=== PATIENT | male | born 1930 | race Caucasian/White ===

== ENCOUNTER → 2016-06-10 | Outpatient (CLI) | payer MEDICARE, BC, OTHER ==
--- NOTE | 2016-06-10 08:55 | CT ---
EXAMINATION TYPE: CT brain wo/w con DATE OF EXAM: 06/10/2016 8:40 AM COMPARISON: 10/16/2015 HISTORY: Weakness CT DLP: 1953.7 mGycm, Automated exposure control for dose reduction was used. CONTRAST: Patient injected with 100 mL of Omnipaque 300. CT of the brain is performed utilizing 3 mm thick sections through the posterior fossa and 3 mm thick sections through the remaining calvarium. Study is performed within 24 hours of arrival to the hospital. No abnormal hyperdensity is present to suggest an acute intracranial hemorrhage. No mass lesion is evident. No acute infarcts are evident. Ventricles and sulci are slightly prominent for the patient age. There is prominence of the extra-ax ial spaces. Mass effect on the adjacent brain is not identified. However, this appears to be an inter camilo change from 10/16/2015. No temporal horn dilatation is evident. Paranasal sinuses and mastoid air cells within the [id number] are clear. IMPRESSIONS: 1. Age-related atrophy. 2. Some prominence of the extra-axial spaces could indicate subdural hygromas or less likely, chronic subdural hematomas.
== END | disposition home or self-care (01) ==
LOC: RADCTMAIN 07:15
PROVIDERS: ATTEND Family Medicine
DX: G31.1 Senile degeneration of brain, not elsewhere classified (principal); R93.0 Abnormal findings on diagnostic imaging of skull and head, not elsewhere classified
CPT/HCPCS: 70470; Q9967

== ENCOUNTER 2016-06-12 07:03 | Observation (INO) | payer MEDICARE, BC, OTHER ==
--- NOTE | 2016-06-12 08:36 | ED ---
Altered Mental Status HPI - General Chief Complaint: Altered Mental Status Stated Complaint: sick Time Seen by Provider: 06/12/16 08:00 Source: EMS, RN notes reviewed Mode of arrival: EMS Limitations: altered mental status - History of Present Illness Initial Comments: 86-year-old male present emergency department via EMS from [facility] on take usp. Patient sent in for altered mental status. There is no information given by patient as he is altered and nonverbal at this time. Patient has had a recent TIA and was at [facility]. Patient has not had a fever. Information is limited at this time. - Related Data Home Medications Medication Instructions Recorded Confirmed Acetaminophen Tab [Tylenol Tab] 650 mg PO Q6H PRN 10/16/15 06/12/16 Calcium Carbonate/Vitamin D3 1 tab PO DAILY 10/16/15 06/12/16 [Calcium 600 + Vit D 400 Tablet] Cyanocobalamin [Vitamin B-12] 500 mcg PO DAILY 10/16/15 06/12/16 Famotidine [Pepcid] 20 mg PO HS 10/16/15 06/12/16 Fluticasone Nasal [place] [Flonase 1 spray EA NOSTRIL BID 10/16/15 06/12/16 Nasal [place]] Furosemide [Lasix] 40 mg PO MOWEFR 10/16/15 06/12/16 Glimepiride [Amaryl] 1 mg PO [id number]-[id number] 10/16/15 06/12/16 Inzo 1 applic TOPICAL BID PRN 10/16/15 06/12/16 Melatonin 6 mg PO HS 10/16/15 06/12/16 Metoprolol Tartrate [Lopressor] 12.5 mg PO BID 10/16/15 06/12/16 Triamcinolone 0.1% Cream [Kenalog] 1 applicatio TOPICAL BID 10/16/15 06/12/16 Aspirin 325 mg PO DAILY 06/12/16 06/12/16 Buprenorphine [Butrans 10 MCG/HOUR] 1 patch TRANSDERM TU 06/12/16 06/12/16 Furosemide [Lasix] 20 mg PO SUTUTHSA 06/12/16 06/12/16 Mylanta Susp 30 ml PO Q4H PRN 06/12/16 06/12/16 Potassium Chloride [Klor-Con 20] 20 meq PO DAILY 06/12/16 06/12/16 diphenhydrAMINE [Benadryl] 50 mg PO ONCE 06/12/16 06/12/16 metFORMIN HCL [Glucophage] 500 mg PO TID 06/12/16 06/12/16 predniSONE 50 mg PO ONCE 06/12/16 06/12/16 Previous Rx's Medication Instructions Recorded Gabapentin [Neurontin] 400 mg PO TID #90 cap 10/16/15 Allergies Allergy/AdvReac Type Severity Reaction Status Date / Time iodine Allergy Unknown Verified 06/12/16 07:57 Review of Systems ROS Statement: Those systems with pertinent positive or pertinent negative responses have been documented in the HPI. ROS Other: All systems not noted in ROS Statement are negative. Past Medical History Past Medical History: CVA/TIA, Diabetes Mellitus History of Any Multi-Drug Resistant Organisms: Unobtainable Past Surgical History: Unable to Obtain Additional Past Surgical History / Comment(s): pt does not know his history Past Psychological History: No Psychological Hx Reported, Unable to Obtain Smoking Status: Never smoker Past Alcohol Use History: None Reported Past Drug Use History: None Reported General Exam Limitations: altered mental status General appearance: in no apparent distress Head exam: Present: atraumatic, normocephalic, normal inspection Eye exam: Present: normal appearance, PERRL, EOMI. Absent: scleral icterus, conjunctival injection, periorbital swelling ENT exam: Present: normal exam, normal oropharynx, mucous membranes moist, TM's normal bilaterally Neck exam: Present: normal inspection. Absent: tenderness, meningismus, lymphadenopathy Respiratory exam: Present: normal lung sounds bilaterally. Absent: respiratory distress, wheezes, rales, rhonchi, stridor Cardiovascular Exam: Present: regular rate, normal rhythm, normal heart sounds. Absent: systolic murmur, diastolic murmur, rubs, gallop, clicks GI/Abdominal exam: Present: soft, normal bowel sounds. Absent: distended, tenderness, guarding, rebound, rigid Neurological exam: Present: altered. Absent: alert, oriented X3 Skin exam: Present: warm, dry Course Vital Signs 06/12/16 06/12/16 06/12/16 07:17 07:31 09:46 Temperature 96.7 F L Pulse Rate 83 77 Respiratory 18 18 Rate Blood Pressure 130/59 122/59 O2 Sat by Pulse 100 98 100 Oximetry Medical Decision Making - Lab Data Result diagrams: 06/12/16 08:55 06/12/16 08:55 Lab Results 06/12/16 06/12/16 06/12/16 Range/Units 08:45 08:55 08:55 WBC 7.7 (3.8-10.6) k/uL RBC 4.54 (4.30-5.90) m/uL Hgb 14.5 (13.0-17.5) gm/dL Hct 44.5 (39.0-53.0) % MCV 97.9 (80.0-100.0) fL MCH 32.0 (25.0-35.0) pg MCHC 32.6 (31.0-37.0) g/dL RDW 14.9 (11.5-15.5) % Plt Count 158 (150-450) k/uL Neutrophils % 74 % Lymphocytes % 17 % Monocytes % 7 % Eosinophils % 1 % Basophils % 0 % Neutrophils # 5.7 (1.3-7.7) k/uL Lymphocytes # 1.3 (1.0-4.8) k/uL Monocytes # 0.5 (0-1.0) k/uL Eosinophils # 0.1 (0-0.7) k/uL Basophils # 0.0 (0-0.2) k/uL PT 10.9 (9.0-12.0) sec INR 1.1 (<1.1) APTT 24.3 (22.0-30.0) sec Sodium (137-145) mmol/L Potassium (3.5-5.1) mmol/L Chloride (98-107) mmol/L Carbon Dioxide (22-30) mmol/L Anion Gap mmol/L BUN (9-20) mg/dL Creatinine (0.66-1.25) mg/dL Est GFR (MDRD) Af Amer (>60 ml/min/1.73 sqM) Est GFR (MDRD) Non-Af (>60 ml/min/1.73 sqM) Glucose (74-99) mg/dL POC Glucose (mg/dL) (75-99) mg/dL POC Glu Subsystems Engineer ID Calcium (8.4-10.2) mg/dL Magnesium (1.6-2.3) mg/dL Total Bilirubin (0.2-1.3) mg/dL AST (17-59) U/L ALT (21-72) U/L Alkaline Phosphatase (38-126) U/L Ammonia (<30) umol/L Total Creatine Kinase (55-170) U/L CK-MB (CK-2) (0.0-2.4) ng/mL CK-MB (CK-2) Rel Index Troponin I (0.000-0.034) ng/mL Total Protein (6.3-8.2) g/dL Albumin (3.5-5.0) g/dL Urine Color Yellow Urine Appearance Cloudy (Clear) Urine pH 5.5 (5.0-8.0) Ur Specific Homer 1.013 (1.001-1.035) Urine Protein Negative (Negative) Urine Glucose (UA) Negative (Negative) Urine Ketones Negative (Negative) Urine Blood Negative (Negative) Urine Nitrate Negative (Negative) Urine Bilirubin Negative (Negative) Urine Urobilinogen <2.0 (<2.0) mg/dL Ur Leukocyte Esterase Small H (Negative) Urine WBC 13 H (0-5) /hpf Ur Squamous Epith Cells <1 (0-4) /hpf Hyaline Casts 1 (0-2) /lpf Urine Mucus Rare H (None) /hpf 06/12/16 06/12/16 06/12/16 Range/Units 08:55 08:55 08:55 WBC (3.8-10.6) k/uL RBC (4.30-5.90) m/uL Hgb (13.0-17.5) gm/dL Hct (39.0-53.0) % MCV (80.0-100.0) fL MCH (25.0-35.0) pg MCHC (31.0-37.0) g/dL RDW (11.5-15.5) % Plt Count (150-450) k/uL Neutrophils % % Lymphocytes % % Monocytes % % Eosinophils % % Basophils % % Neutrophils # (1.3-7.7) k/uL Lymphocytes # (1.0-4.8) k/uL Monocytes # (0-1.0) k/uL Eosinophils # (0-0.7) k/uL Basophils # (0-0.2) k/uL PT (9.0-12.0) sec INR (<1.1) APTT (22.0-30.0) sec Sodium 141 (137-145) mmol/L Potassium 5.1 (3.5-5.1) mmol/L Chloride 100 (98-107) mmol/L Carbon Dioxide 30 (22-30) mmol/L Anion Gap 11 mmol/L BUN 29 H (9-20) mg/dL Creatinine 0.87 (0.66-1.25) mg/dL Est GFR (MDRD) Af Amer >60 (>60 ml/min/1.73 sqM) Est GFR (MDRD) Non-Af >60 (>60 ml/min/1.73 sqM) Glucose 69 L (74-99) mg/dL POC Glucose (mg/dL) (75-99) mg/dL POC Glu Subsystems Engineer ID Calcium 9.5 (8.4-10.2) mg/dL Magnesium 1.9 (1.6-2.3) mg/dL Total Bilirubin 0.9 (0.2-1.3) mg/dL AST 75 H (17-59) U/L ALT 103 H (21-72) U/L Alkaline Phosphatase 136 H (38-126) U/L Ammonia <9 (<30) umol/L Total Creatine Kinase 38 L (55-170) U/L CK-MB (CK-2) 2.2 (0.0-2.4) ng/mL CK-MB (CK-2) Rel Index 5.8 Troponin I <0.012 (0.000-0.034) ng/mL Total Protein 6.5 (6.3-8.2) g/dL Albumin 3.6 (3.5-5.0) g/dL Urine Color Urine Appearance (Clear) Urine pH (5.0-8.0) Ur Specific Homer (1.001-1.035) Urine Protein (Negative) Urine Glucose (UA) (Negative) Urine Ketones (Negative) Urine Blood (Negative) Urine Nitrate (Negative) Urine Bilirubin (Negative) Urine Urobilinogen (<2.0) mg/dL Ur Leukocyte Esterase (Negative) Urine WBC (0-5) /hpf Ur Squamous Epith Cells (0-4) /hpf Hyaline Casts (0-2) /lpf Urine Mucus (None) /hpf 06/12/16 Range/Units 10:51 WBC (3.8-10.6) k/uL RBC (4.30-5.90) m/uL Hgb (13.0-17.5) gm/dL Hct (39.0-53.0) % MCV (80.0-100.0) fL MCH (25.0-35.0) pg MCHC (31.0-37.0) g/dL RDW (11.5-15.5) % Plt Count (150-450) k/uL Neutrophils % % Lymphocytes % % Monocytes % % Eosinophils % % Basophils % % Neutrophils # (1.3-7.7) k/uL Lymphocytes # (1.0-4.8) k/uL Monocytes # (0-1.0) k/uL Eosinophils # (0-0.7) k/uL Basophils # (0-0.2) k/uL PT (9.0-12.0) sec INR (<1.1) APTT (22.0-30.0) sec Sodium (137-145) mmol/L Potassium (3.5-5.1) mmol/L Chloride (98-107) mmol/L Carbon Dioxide (22-30) mmol/L Anion Gap mmol/L BUN (9-20) mg/dL Creatinine (0.66-1.25) mg/dL Est GFR (MDRD) Af Amer (>60 ml/min/1.73 sqM) Est GFR (MDRD) Non-Af (>60 ml/min/1.73 sqM) Glucose (74-99) mg/dL POC Glucose (mg/dL) 92 (75-99) mg/dL POC Glu Subsystems Engineer ID Sujey Vital Calcium (8.4-10.2) mg/dL Magnesium (1.6-2.3) mg/dL Total Bilirubin (0.2-1.3) mg/dL AST (17-59) U/L ALT (21-72) U/L Alkaline Phosphatase (38-126) U/L Ammonia (<30) umol/L Total Creatine Kinase (55-170) U/L CK-MB (CK-2) (0.0-2.4) ng/mL CK-MB (CK-2) Rel Index Troponin I (0.000-0.034) ng/mL Total Protein (6.3-8.2) g/dL Albumin (3.5-5.0) g/dL Urine Color Urine Appearance (Clear) Urine pH (5.0-8.0) Ur Specific [place] (1.001-1.035) Urine Protein (Negative) Urine Glucose (UA) (Negative) Urine Ketones (Negative) Urine Blood (Negative) Urine Nitrate (Negative) Urine Bilirubin (Negative) Urine Urobilinogen (<2.0) mg/dL Ur Leukocyte Esterase (Negative) Urine WBC (0-5) /hpf Ur Squamous Epith Cells (0-4) /hpf Hyaline Casts (0-2) /lpf Urine Mucus (None) /hpf Disposition Clinical Impression: Altered mental status, UTI (urinary tract infection) Disposition: ADMITTED IP TO THIS HOSP
--- NOTE | 2016-06-12 08:45 | CT ---
EXAMINATION TYPE: CT brain wo con DATE OF EXAM: 06/12/2016 8:35 AM COMPARISON: 06/10/2016 HISTORY: lethargic with altered mental changes CT DLP: [address] of the brain was performed. The ventricles, basal cisterns and sulci overlying the cerebral convexities demonstrate mild enlargem ent. There is no evidence for intracranial hemorrhage or sulcal effacement. There is decreased attenuation about the periventricular white matter and deep white matter of both c erebral hemispheres, compatible with chronic small vessel ischemia. Differential diagnosis does inclu de demyelination. No mass effects are seen.No midline shift. Osseous calvarium is intact. If symptoms persist consider MRI. IMPRESSION: 1. Age related atrophic and chronic small vessel ischemic change without acute intracranial process s een at this time.
[2016-06-12 09:05] LABS: Appearance,Urine Cloudy (Clear); Bilirubin,Urine Negative (Negative); Glucose,Urine (UA) Negative (Negative); Ketones,Urine Negative (Negative); Leukocyte Esterase,Urine Small (Negative); Mucus,Urine Rare /hpf; Nitrite,Urine Negative (Negative); PH, Urine 5.5 (5.0-8.0); Particle Count 5880; Protein,Urine Negative (Negative); Specific Gravity,Urine 1.013 (1.001-1.035); Squamous Epithelial Cell,Urine <1 /hpf (0-4); UA Billing (MACRO vs. MICRO) MICRO; Urobilinogen,Urine <2.0 mg/dL (<2.0); WBC,Urine 13 /hpf (0-5)
[2016-06-12 09:11] LABS: Basophils % (A) 0 %; CH 33.1; Eosinophils # (A) 0.1 k/uL (0-0.7); Eosinophils % (A) 1 %; HCT 44.5 % (39.0-53.0); HDW 2.86; HGB 14.5 gm/dL (13.0-17.5); Luc # (Auto) 0.08; Luc % (Auto) 1; Lymphocytes # (A) 1.3 k/uL (1.0-4.8); Lymphocytes % (A) 17 %; MCHC 32.6 g/dL (31.0-37.0); MCV 97.9 fL (80.0-100.0); Mean Platelet Volume 7.4; Monocytes # (A) 0.5 k/uL (0-1.0); Monocytes % (A) 7 %; Neutrophils # (A) 5.7 k/uL (1.3-7.7); Neutrophils % (A) 74 %; RBC 4.54 m/uL (4.30-5.90); RDW 14.9 % (11.5-15.5); WBC 7.7 k/uL (3.8-10.6); WBC (Perox) 8.52
--- NOTE | 2016-06-12 09:15 | XR ---
EXAMINATION TYPE: XR chest 2V DATE OF EXAM: 06/12/2016 8:33 AM COMPARISON: 10/16/2015 HISTORY: Shortness of breath TECHNIQUE: Frontal and lateral views of the chest are obtained. FINDINGS: Scattered senescent parenchymal changes noted. Hyperinflation compatible with COPD. No evidence for infiltrate. No evidence for atelectasis. Heart size is stable. Mediastinal structures are stable and grossly unremarkable. No evidence for hilar prominence. Degenerative changes dorsal spine. IMPRESSION: 1. No evidence for acute pulmonary disease.
[2016-06-12 09:18] LABS: INR 1.1 (<1.1); Partial Thromboplastin Time 24.3 sec (22.0-30.0); Prothrombin Time 10.9 sec (9.0-12.0)
[2016-06-12 09:23] LABS: ALT 103 U/L (21-72); AST 75 U/L (17-59); Alkaline Phosphatase 136 U/L (38-126); Anion Gap 11 mmol/L; Blood Urea Nitrogen 29 mg/dL (9-20); Calcium 9.5 mg/dL (8.4-10.2); Carbon Dioxide 30 mmol/L (22-30); Chloride 100 mmol/L (98-107); Glucose 69 mg/dL (74-99); Magnesium 1.9 mg/dL (1.6-2.3); Non-African American GFR(MDRD) >60 (>60 ml/min/1.73 sqM); Potassium 5.1 mmol/L (3.5-5.1); Sodium 141 mmol/L (137-145); Total Bilirubin 0.9 mg/dL (0.2-1.3); Total Protein 6.5 g/dL (6.3-8.2)
[2016-06-12 09:34] LABS: Creatine Kinase 38 U/L (55-170)
[2016-06-12 09:47] LABS: Creatine Kinase MB 2.2 ng/mL (0.0-2.4); Troponin I <0.012 ng/mL (0.000-0.034)
[2016-06-12] MEDS ORDERED: LEVOFLOXACIN 750MG-D5W PMX 750 MG in DEXTROSE/WATER 1 150ML.BAG IVPB STA (10:36)
[2016-06-12 10:54] LABS: Glucose,Whole Blood 92 mg/dL (75-99)
[2016-06-12] MEDS ORDERED: NALOXONE 0.4 MG/ML 1 ML VIAL IV PRN (11:23)
[2016-06-12] MEDS ORDERED: ACETAMINOPHEN TAB 325 MG TAB PO PRN (11:24)
[2016-06-12] MEDS ORDERED: MORPHINE SULFATE 4 MG/ML SYRINGE IVP STA (12:03)
[2016-06-12] MEDS ORDERED: KETOROLAC 30 MG/ML 1 ML VIAL IVP STA (12:17)
[2016-06-12] MEDS: SODIUM CHLORIDE 0.9% 1,000 ML IV SCH ×2 (12:18→21:42)
[2016-06-12] MEDS ORDERED: FUROSEMIDE 20 MG TAB PO SCH (12:45)
--- NOTE | 2016-06-12 14:45 | HP ---
DATE OF ADMISSION: CHIEF COMPLAINT: Altered mental status. HISTORY OF PRESENT ILLNESS: This is an 86-year-old male with past medical history significant for advanced dementia, presents to the emergency department with worsening mental status. According to the ER record, as there is no other way for information at this point, that the patient was having changing in his mental status at the long term and was brought to the emergency department for further investigation. Blood work was done at the long term and revealed normal liver function status and normal creatinine and electrolyte panel. Here in the emergency, the urine showed possibility for urinary tract infection. Patient was started on Levaquin and admitted. REVIEW OF SYSTEMS: Unable to obtain due to patient's condition. PAST MEDICAL HISTORY: Limited information due to patient's condition include: 1. Hypertension. 2. Dementia. 3. Benign prostatic hypertrophy. PAST SURGICAL HISTORY: Unknown. FAMILY HISTORY: Unknown. HOME MEDICATIONS: Still waiting on the long term to send his home medications. SOCIAL HISTORY: No document history of tobacco, alcohol or drug abuse. IMAGING AND LABS: As mentioned above. UA is positive for urinary tract infection. PHYSICAL EXAMINATION: VITAL SIGNS: Reviewed and stable. GENERAL: In his stated age, in no acute distress. Arousable to voice command. NECK: Supple, no masses or thyromegaly. HEENT: Atraumatic, normocephalic, PERRLA. LUNGS: Clear to auscultation bilaterally. HEART: S1, S2. ABDOMEN: Soft, no tenderness. Bowel sounds positive in all 4 quadrants. LOWER EXTREMITY: No edema. Positive for gauze wrapped on his left lower ankle. I examined that personally and there is no skin break, erythema or swelling noticed on physical examination. No tenderness with range of motion. SKIN: No new rash. PSYCH: Follows simple commands. ASSESSMENT AND PLAN: 1. Acute encephalopathy with history of dementia and current urinary tract infection. I would like to start patient on Levaquin, obtain urine culture. I would like to follow up on his vital signs closely. Avoid nephrotoxic medication and optimize his medical treatment. 2. History of dementia. 3. Debility and weakness. Will have PT, OT evaluate the patient during this hospital stay and prior to discharge. 4. Benign prostatic hypertrophy. Will obtain home medication regimen from the long term and consider discharging patient on appropriate regimen. 5. Hypertension, seems to be under fair control at this point. 6. Deep venous thrombosis prophylaxis. Will provide patient with Lovenox during this hospital stay. 7. Discharge process based on clinical progress.
[2016-06-12 16:13] LABS: Glucose,Whole Blood 84 mg/dL (75-99)
[2016-06-12] MEDS: GABAPENTIN 400 MG CAP PO SCH ×2 (18:25→21:42)
[2016-06-12] MEDS: metFORMIN 500 MG TAB PO SCH ×2 (18:26→21:42)
[2016-06-12 20:11] LABS: Glucose,Whole Blood 79 mg/dL (75-99)
[2016-06-12] MEDS ORDERED: FAMOTIDINE 20 MG TAB PO SCH (21:00)
[2016-06-12] MEDS: METOPROLOL TARTRATE 12.5 MG TAB PO SCH (21:42)
[2016-06-13] MEDS ORDERED: GLIMEPIRIDE 1 MG TAB PO SCH (07:30)
[2016-06-13 08:03] LABS: Glucose,Whole Blood 53 mg/dL (75-99)
[2016-06-13 08:03] LABS: Glucose,Whole Blood 68 mg/dL (75-99)
[2016-06-13 08:14] LABS: Glucose,Whole Blood 72 mg/dL (75-99)
[2016-06-13 08:42] VITALS: BP 129/59; PULSE 83; RESP 17; TEMP 97.4
[2016-06-13] MEDS: SODIUM CHLORIDE 0.9% 1,000 ML IV SCH (08:42)
[2016-06-13] MEDS: METOPROLOL TARTRATE 12.5 MG TAB PO SCH (08:43)
[2016-06-13] MEDS: metFORMIN 500 MG TAB PO SCH (08:43)
[2016-06-13] MEDS: GABAPENTIN 400 MG CAP PO SCH (08:43)
[2016-06-13] MEDS ORDERED: ASPIRIN 325 MG TAB PO SCH (09:00)
[2016-06-13] MEDS ORDERED: FUROSEMIDE 40 MG TAB PO SCH (09:00)
[2016-06-13] MEDS ORDERED: POTASSIUM CHLORIDE ER 20 MEQ TAB.ER PO SCH (09:00)
[2016-06-13 11:59] LABS: Glucose,Whole Blood 91 mg/dL (75-99)
--- NOTE | 2016-06-13 13:35 | DS ---
DATE OF ADMISSION: 06/12/2016 DATE OF DISCHARGE: 06/13/2016 ADMITTING DIAGNOSIS: 1. Altered mental status. 2. Generalized weakness. 3. Genitourinary tract infection. 4. Dementia. DISCHARGE DIAGNOSIS: 1. Altered mental status. 2. Generalized weakness. 3. Genitourinary tract infection. 4. Dementia. HISTORY OF PRESENT ILLNESS: This is an 86 year old male who is a resident of a retirement, who presented to the hospital with altered mental status. The patient had baseline history of dementia, daughter was at the bedside, who reassured me that the patient was at the baseline mental status and is basically room bound with activities with assistance. The patient was alert, awake, and following commands, tolerated his diet. He received Levaquin during the hospital stay. The patient is stable from the medical standpoint, and plan discussed with the daughter at the bedside at length who preferred that the patient go back and get this treatment for urinary tract infection at the retirement as the patient gets very delirious during the hospital stay. The patient was discharged in stable condition.
[2016-06-17] MEDS ORDERED: BUPRENORPHINE TRANSDERM SCH (11:24)
== END 2016-06-13 15:00 ==
LOC: EC 07:03 → 3OBS 11:23 → 5MS5E 12:32
PROVIDERS: ADMIT Internal Medicine; ATTEND Internal Medicine
DX: R41.82 Altered mental status, unspecified (principal); R53.1 Weakness; N39.0 Urinary tract infection, site not specified; F03.90 Unspecified dementia, unspecified severity, without behavioral disturbance, psychotic disturbance, mood disturbance, and anxiety; N40.0 Benign prostatic hyperplasia without lower urinary tract symptoms; E11.9 Type 2 diabetes mellitus without complications; I10 Essential (primary) hypertension; Z86.73 Personal history of transient ischemic attack (TIA), and cerebral infarction without residual deficits; Z79.82 Long term (current) use of aspirin; Z79.84 Long term (current) use of oral hypoglycemic drugs; Z79.899 Other long term (current) drug therapy; Z88.8 Allergy status to other drugs, medicaments and biological substances
CPT/HCPCS: 36415; 97163; 97167; 80053; 82140; 82550; 82553; 83735; 84484; 85025; 85610; 85730; 81001; 87040; 87086; 71020; 70450; 99285; 96365; 96366; 96375; G0378 ×2; J0696; J1885; J1956; 93005; 96361; 96367

== ENCOUNTER 2016-06-20 19:56 | Inpatient (IN) | payer MEDICARE, BC, OTHER ==
[~2016-06-20 19:56] MED LIST: ATROPINE SULFATE 0.1 MG/ML 10ML SYRINGE ONE; EPINEPHrine 10 ML SYRINGE (0.1 MG/ML) ONE
[2016-06-20] MEDS ORDERED: MORPHINE SULFATE 4 MG/ML SYRINGE IV STA (20:21)
[2016-06-20] MEDS ORDERED: SODIUM CHLORIDE 0.9% 1,000 ML IV STA ×2 (20:21)
--- NOTE | 2016-06-20 20:38 | ED ---
General Adult HPI - General Chief complaint: Weakness Stated complaint: dehydration Time Seen by Provider: 06/20/16 20:02 Source: EMS, RN notes reviewed, old records reviewed Mode of arrival: EMS - History of Present Illness Initial comments: This is an 86-year-old male ER for evaluation. Patient's is here today for reevaluation weakness. Patient is unable to give history, patient's poor strain secondary to mental state critical condition. History is obtained from EMS and patient's chart - Related Data Home Medications Medication Instructions Recorded Confirmed Acetaminophen Tab [Tylenol] 650 mg PO Q6H PRN 10/16/15 06/20/16 Calcium Carbonate/Vitamin D3 1 tab PO DAILY 10/16/15 06/20/16 [Calcium 600-Vit D3 400 Tablet] Cyanocobalamin [Vitamin B-12] 500 mcg PO DAILY 10/16/15 06/20/16 Famotidine [Pepcid] 20 mg PO HS 10/16/15 06/20/16 Fluticasone Nasal [place] [Flonase 1 spray EA NOSTRIL BID 10/16/15 06/20/16 Nasal [place]] Glimepiride [Amaryl] 1 mg PO AC-BRKFST 10/16/15 06/20/16 Inzo 1 applic TOPICAL BID PRN 10/16/15 06/20/16 Melatonin 6 mg PO HS 10/16/15 06/20/16 Metoprolol Tartrate [Lopressor] 12.5 mg PO BID 10/16/15 06/20/16 Triamcinolone 0.1% Cream [Kenalog] 1 applicatio TOPICAL BID 10/16/15 06/20/16 Aspirin 325 mg PO DAILY 06/12/16 06/20/16 Mylanta Susp 30 ml PO Q4H PRN 06/12/16 06/20/16 Potassium Chloride [Klor-Con 20] 20 meq PO DAILY 06/12/16 06/20/16 metFORMIN HCL [Glucophage] 500 mg PO TID 06/12/16 06/20/16 Previous Rx's Medication Instructions Recorded Gabapentin [Neurontin] 400 mg PO TID #90 cap 10/16/15 Buprenorphine [Butrans 10 MCG/HOUR] 1 patch TRANSDERM TU #4 patch.tdwk 06/13/16 Furosemide [Lasix] 20 mg PO DAILY #0 06/13/16 Nitrofurantoin Monohyd/M-Cryst 100 mg PO Q12HR #14 cap 06/13/16 [Macrobid] Allergies Allergy/AdvReac Type Severity Reaction Status Date / Time iodine Allergy Unknown Verified 06/20/16 20:10 Review of Systems ROS Statement: Those systems with pertinent positive or pertinent negative responses have been documented in the HPI. ROS Other: All systems not noted in ROS Statement are negative. Past Medical History Past Medical History: CVA/TIA, Dementia, Diabetes Mellitus, GERD/Reflux, Osteoarthritis (OA), Pneumonia, Vascular Disorder Additional Past Medical History / Comment(s): PANCREATITIS, CHRONIC SKIN ULCERS, ESOPHAGITIS, "EITHER SCARLET FEVER OR RHUEMATIC FEVER CHILD", BRAIN ANEURYSM. History of Any Multi-Drug Resistant Organisms: Unobtainable Past Surgical History: Back Surgery Additional Past Surgical History / Comment(s): SEVRAL BACK SX, CATARACTS," HAD SX D/T ABCESS THAT DEVELOPED AFTER HAVING PANCREATITIS" Past Anesthesia/Blood Transfusion Reactions: No Reported Reaction Additional Past Anesthesia/Blood Transfusion Reaction / Comment(s): ALLERGIC TO IV CONTRAST DYE Past Psychological History: No Psychological Hx Reported, Unable to Obtain Smoking Status: Former smoker Past Alcohol Use History: None Reported Past Drug Use History: None Reported - Past Family History Father Additional Family Medical History / Comment(s): FROM BLACK LUNG Mother Family Medical History: CVA/TIA General Exam Limitations: altered mental status General appearance: alert, lethargic, in distress, cachectic Head exam: Present: atraumatic, normocephalic, normal inspection Eye exam: Present: normal appearance, PERRL, EOMI. Absent: scleral icterus, conjunctival injection, periorbital swelling ENT exam: Present: mucous membranes dry Neck exam: Present: normal inspection. Absent: tenderness, meningismus, lymphadenopathy Respiratory exam: Present: normal lung sounds bilaterally. Absent: respiratory distress, wheezes, rales, rhonchi, stridor Cardiovascular Exam: Present: regular rate, normal rhythm, tachycardia, normal heart sounds. Absent: systolic murmur, diastolic murmur, rubs, gallop, clicks GI/Abdominal exam: Present: soft, normal bowel sounds. Absent: distended, tenderness, guarding, rebound, rigid Extremities exam: Present: normal inspection, full ROM, normal capillary refill. Absent: tenderness, pedal edema, joint swelling, calf tenderness Back exam: Present: normal inspection Neurological exam: Present: alert, oriented X3, CN II-XII intact Psychiatric exam: Present: normal affect, normal mood Skin exam: Present: warm, dry, intact, normal color. Absent: rash Course Vital Signs 06/20/16 20:07 Temperature 97.2 F L Pulse Rate 111 H Respiratory 19 Rate Blood Pressure 166/87 O2 Sat by Pulse 94 L Oximetry - Reevaluation(s) Reevaluation #1: 06/20/16 21:31 Patient's without clinical improvement EKG Findings - EKG Comments: EKG Findings:: EKG shows sinus tachycardia rate 113, NC 160, QRS 70, QTC 458 Medical Decision Making - Medical Decision Making 86 male ER for evaluation. Patient we will give history, patient presented here for evaluation of weakness, patient found to be severe be dehydrated and malnourished, will admit for resuscitation, no infection found, patient started on antibiotic prophylaxis secondary to sepsis protocol, patient will be admitted for monitoring of mental status - Lab Data Result diagrams: 06/20/16 20:45 06/20/16 20:45 Lab Results 06/20/16 06/20/16 06/20/16 Range/Units 20:45 20:45 20:45 WBC 10.4 (3.8-10.6) k/uL RBC 3.94 L (4.30-5.90) m/uL Hgb 12.9 L (13.0-17.5) gm/dL Hct 39.9 (39.0-53.0) % MCV 101.1 H (80.0-100.0) fL MCH 32.8 (25.0-35.0) pg MCHC 32.4 (31.0-37.0) g/dL RDW 14.8 (11.5-15.5) % Plt Count 186 (150-450) k/uL Neutrophils % 87 % Lymphocytes % 7 % Monocytes % 4 % Eosinophils % 0 % Basophils % 0 % Neutrophils # 9.0 H (1.3-7.7) k/uL Lymphocytes # 0.8 L (1.0-4.8) k/uL Monocytes # 0.4 (0-1.0) k/uL Eosinophils # 0.0 (0-0.7) k/uL Basophils # 0.0 (0-0.2) k/uL Macrocytosis Slight PT (9.0-12.0) sec INR (<1.1) APTT (22.0-30.0) sec Sodium 145 (137-145) mmol/L Potassium 3.6 (3.5-5.1) mmol/L Chloride 120 H* (98-107) mmol/L Carbon Dioxide 15 L (22-30) mmol/L Anion Gap 10 mmol/L BUN 13 (9-20) mg/dL Creatinine 0.30 L (0.66-1.25) mg/dL Est GFR (MDRD) Af Amer >60 (>60 ml/min/1.73 sqM) Est GFR (MDRD) Non-Af >60 (>60 ml/min/1.73 sqM) Glucose 66 L (74-99) mg/dL Plasma Lactic Acid Philipp 2.5 H* (0.7-2.0) mmol/L Calcium 7.1 L (8.4-10.2) mg/dL Phosphorus 2.5 (2.5-4.5) mg/dL Magnesium 1.4 L (1.6-2.3) mg/dL Total Bilirubin 0.7 (0.2-1.3) mg/dL AST 65 H (17-59) U/L ALT 83 H (21-72) U/L Alkaline Phosphatase 110 (38-126) U/L NT-Pro-B Natriuret Pep pg/mL Total Protein 4.6 L (6.3-8.2) g/dL Albumin 2.2 L (3.5-5.0) g/dL Urine Color Urine Appearance (Clear) Urine pH (5.0-8.0) Ur Specific [place] (1.001-1.035) Urine Protein (Negative) Urine Glucose (UA) (Negative) Urine Ketones (Negative) Urine Blood (Negative) Urine Nitrate (Negative) Urine Bilirubin (Negative) Urine Urobilinogen (<2.0) mg/dL Ur Leukocyte Esterase (Negative) Urine RBC (0-5) /hpf Urine WBC (0-5) /hpf Ur Squamous Epith Cells (0-4) /hpf Urine Mucus (None) /hpf 06/20/16 06/20/16 06/20/16 Range/Units 20:45 20:45 20:45 WBC (3.8-10.6) k/uL RBC (4.30-5.90) m/uL Hgb (13.0-17.5) gm/dL Hct (39.0-53.0) % MCV (80.0-100.0) fL MCH (25.0-35.0) pg MCHC (31.0-37.0) g/dL RDW (11.5-15.5) % Plt Count (150-450) k/uL Neutrophils % % Lymphocytes % % Monocytes % % Eosinophils % % Basophils % % Neutrophils # (1.3-7.7) k/uL Lymphocytes # (1.0-4.8) k/uL Monocytes # (0-1.0) k/uL Eosinophils # (0-0.7) k/uL Basophils # (0-0.2) k/uL Macrocytosis PT 10.6 (9.0-12.0) sec INR 1.1 (<1.1) APTT 22.4 (22.0-30.0) sec Sodium (137-145) mmol/L Potassium (3.5-5.1) mmol/L Chloride (98-107) mmol/L Carbon Dioxide (22-30) mmol/L Anion Gap mmol/L BUN (9-20) mg/dL Creatinine (0.66-1.25) mg/dL Est GFR (MDRD) Af Amer (>60 ml/min/1.73 sqM) Est GFR (MDRD) Non-Af (>60 ml/min/1.73 sqM) Glucose (74-99) mg/dL Plasma Lactic Acid Philipp (0.7-2.0) mmol/L Calcium (8.4-10.2) mg/dL Phosphorus (2.5-4.5) mg/dL Magnesium (1.6-2.3) mg/dL Total Bilirubin (0.2-1.3) mg/dL AST (17-59) U/L ALT (21-72) U/L Alkaline Phosphatase (38-126) U/L NT-Pro-B Natriuret Pep 604 pg/mL Total Protein (6.3-8.2) g/dL Albumin (3.5-5.0) g/dL Urine Color Yellow Urine Appearance Cloudy (Clear) Urine pH 5.0 (5.0-8.0) Ur Specific [place] 1.012 (1.001-1.035) Urine Protein Negative (Negative) Urine Glucose (UA) Negative (Negative) Urine Ketones 2+ H (Negative) Urine Blood Negative (Negative) Urine Nitrate Negative (Negative) Urine Bilirubin Negative (Negative) Urine Urobilinogen <2.0 (<2.0) mg/dL Ur Leukocyte Esterase Negative (Negative) Urine RBC 1 (0-5) /hpf Urine WBC 1 (0-5) /hpf Ur Squamous Epith Cells 1 (0-4) /hpf Urine Mucus Rare H (None) /hpf - Radiology Data Radiology results: report reviewed (Chest x-ray is negative for acute disease), image reviewed Disposition Clinical Impression: Altered mental status, Dehydration, Malnutrition, Weakness Disposition: ADMITTED IP TO THIS [facility] Condition: Serious Referrals: Tarah Banegas MD [Primary Care Provider] - 1-2 days
[2016-06-20 21:02] LABS: Basophils % (A) 0 %; CH 32.6; CHCM 32.4; Eosinophils % (A) 0 %; HCT 39.9 % (39.0-53.0); HDW 2.91; HGB 12.9 gm/dL (13.0-17.5); Luc # (Auto) 0.11; Luc % (Auto) 1; Lymphocytes # (A) 0.8 k/uL (1.0-4.8); Lymphocytes % (A) 7 %; MCH 32.8 pg (25.0-35.0); MCHC 32.4 g/dL (31.0-37.0); MCV 101.1 fL (80.0-100.0); Macrocytosis Slight; Mean Platelet Volume 7.8; Monocytes # (A) 0.4 k/uL (0-1.0); Monocytes % (A) 4 %; Neutrophils % (A) 87 %; RBC 3.94 m/uL (4.30-5.90); RDW 14.8 % (11.5-15.5); WBC 10.4 k/uL (3.8-10.6); WBC (Perox) 10.68
[2016-06-20 21:04] LABS: Appearance,Urine Cloudy (Clear); Bilirubin,Urine Negative (Negative); Glucose,Urine (UA) Negative (Negative); Ketones,Urine 2+ (Negative); Leukocyte Esterase,Urine Negative (Negative); Mucus,Urine Rare /hpf; Nitrite,Urine Negative (Negative); Particle Count 6720; Protein,Urine Negative (Negative); RBC,Urine 1 /hpf (0-5); Specific Gravity,Urine 1.012 (1.001-1.035); Squamous Epithelial Cell,Urine 1 /hpf (0-4); UA Billing (MACRO vs. MICRO) MICRO; Urobilinogen,Urine <2.0 mg/dL (<2.0); WBC,Urine 1 /hpf (0-5)
[2016-06-20 21:14] LABS: INR 1.1 (<1.1); Partial Thromboplastin Time 22.4 sec (22.0-30.0); Prothrombin Time 10.6 sec (9.0-12.0)
[2016-06-20 21:16] LABS: ALT 83 U/L (21-72); AST 65 U/L (17-59); Alkaline Phosphatase 110 U/L (38-126); Anion Gap 10 mmol/L; Blood Urea Nitrogen 13 mg/dL (9-20); Calcium 7.1 mg/dL (8.4-10.2); Carbon Dioxide 15 mmol/L (22-30); Glucose 66 mg/dL (74-99); Magnesium 1.4 mg/dL (1.6-2.3); Non-African American GFR(MDRD) >60 (>60 ml/min/1.73 sqM); Phosphorous 2.5 mg/dL (2.5-4.5); Potassium 3.6 mmol/L (3.5-5.1); Sodium 145 mmol/L (137-145); Total Bilirubin 0.7 mg/dL (0.2-1.3); Total Protein 4.6 g/dL (6.3-8.2)
[2016-06-20 21:19] LABS: Chloride 120 mmol/L (98-107)
[2016-06-20] MEDS ORDERED: DEXTROSE 5%-0.45% NACL 1,000 ML IV ONE (21:29)
[2016-06-20] MEDS ORDERED: DEXTROSE 50%-WATER 50 ML SYRINGE IVP STA (21:29)
[2016-06-20 21:39] LABS: Creatine Kinase <20 U/L (55-170)
--- NOTE | 2016-06-20 21:42 | XR ---
EXAMINATION TYPE: XR chest 2V DATE OF EXAM: 06/20/2016 9:27 PM COMPARISON: 06/12/2016 HISTORY: Altered mental status TECHNIQUE: Frontal and lateral views of the chest are obtained. FINDINGS: There is elevated left diaphragm. There is no heart failure. Heart size is normal. Thoraci c aorta is atheromatous. There are chest leads. The bony thorax is intact. IMPRESSION: Elevated left diaphragm could relate to some paralysis that is worse than old exam. Norm al heart.
[2016-06-20 21:51] LABS: Troponin I <0.012 ng/mL (0.000-0.034)
[2016-06-20] MEDS: MAGNESIUM SULFATE-D5W PMX 1 GM in DEXTROSE/WATER 1 100ML.BAG IVPB SCH (22:25)
[2016-06-20] MEDS: SODIUM CHLORIDE 0.9% 1,000 ML IV SCH (23:46)
[2016-06-20 23:47] LABS: Glucose,Whole Blood 89 mg/dL (75-99)
[2016-06-21] MEDS ORDERED: ZINC OXIDE 20% OINT 28.4 GM TUBE TOPICAL PRN (00:01)
[2016-06-21] MEDS ORDERED: MAG HYDROX/AL HYDROX/SIMETH 30 ML CUP PO PRN (00:01)
[2016-06-21] MEDS ORDERED: ACETAMINOPHEN TAB 325 MG TAB PO PRN (00:01)
[2016-06-21] MEDS: SODIUM CHLORIDE 0.9% 500 ML IV SCH ×4 (00:18→02:04)
[2016-06-21] MEDS: MAGNESIUM SULFATE-D5W PMX 1 GM in DEXTROSE/WATER 1 100ML.BAG IVPB SCH (02:06)
[2016-06-21] MEDS: SODIUM CHLORIDE 0.9% 1,000 ML IV SCH ×4 (02:07→21:00)
[2016-06-21] MEDS ORDERED: GLIMEPIRIDE 1 MG TAB PO SCH (07:30)
[2016-06-21 07:45] LABS: Glucose,Whole Blood 141 mg/dL (75-99)
[2016-06-21] MEDS: METOPROLOL TARTRATE 12.5 MG TAB PO SCH (07:59)
[2016-06-21] MEDS: ASPIRIN 81 MG CHEW PO SCH (08:00)
[2016-06-21] MEDS: FLUTICASONE 50MCG/SPRAY NASAL 16GM EA NOSTRIL SCH ×2 (08:00→21:15)
[2016-06-21] MEDS: CYANOCOBALAMIN 500 MCG TAB PO SCH (08:00)
[2016-06-21] MEDS: metFORMIN 500 MG TAB PO SCH ×3 (08:00→18:31)
[2016-06-21] MEDS: ENOXAPARIN 40 MG/0.4 ML SYRINGE SQ SCH (08:00)
[2016-06-21] MEDS ORDERED: ASPIRIN 325 MG TAB PO SCH (09:00)
[2016-06-21] MEDS ORDERED: PANTOPRAZOLE 40 MG/10 ML VIAL IV SCH (09:00)
[2016-06-21] MEDS ORDERED: GABAPENTIN 400 MG CAP PO SCH (09:00)
[2016-06-21] MEDS ORDERED: FUROSEMIDE 20 MG TAB PO SCH (09:00)
[2016-06-21] MEDS ORDERED: POTASSIUM CHLORIDE ER 20 MEQ TAB.ER PO SCH (09:00)
[2016-06-21 12:45] LABS: Glucose,Whole Blood 106 mg/dL (75-99)
[2016-06-21] MEDS: CALCIUM CARB-VIT D 500MG-200UN 1 EACH TAB PO SCH (13:08)
--- NOTE | 2016-06-21 13:53 | P.HPIM ---
History of Present Illness H&P Date: 06/21/16 Chief Complaint: Severe dehydration, failure to thrive, change in mental status , confusion 86-year-old male one of Dr. Banegas's patient who is an [facility]pc was hospitalized last in June 12 for altered mental status change and found to have urinary tract infection was treated and sent to the fpc on 06/13/2016. Patient was sent to the emergency department at [facility] on on 2016 for altered mental status change with severe dehydration hypotension and worsening mentation. Patient was seen and evaluated found to have mild dehydration and significant decrease in urine output with mild hypotension. Was started on hydration and admitted to the hospital with the above problem. No history of infection found this time also no history of injury fall. No family around and no provide history from [facility]. Review of Systems Constitutional: Reports anorexia, Reports fatigue, Reports lethargy, Reports poor appetite, Reports weakness, Reports weight loss, Denies as per HPI, Denies chills, Denies chronic headaches, Denies chronic pain, Denies daytime sleepiness , Denies fever, Denies malaise, Denies night sweats, Denies sweats, Denies weight gain Eyes: bilateral as per HPI Ears: bilateral: decreased hearing Ears, nose, mouth and throat: Reports nasal congestion, Denies as per HPI, Denies ant. neck pain, Denies bleeding gums, Denies dental pain, Denies dysphagia, Denies epistaxis, Denies headache, Denies hoarseness, Denies mouth pain, Denies nasal discharge, Denies neck fullness/pressure, Denies neck lump, Denies nose pain, Denies odynophagia, Denies post-nasal drip, Denies sinus pain , Denies sinus pressure, Denies swelling in mouth, Denies swelling in throat, Denies sore throat, Denies vertigo, Denies voice changes Cardiovascular: Reports lightheadedness, Reports rapid heart beat, Reports shortness of breath, Denies as per HPI, Denies chest pain, Denies claudication, Denies decreased exercise tolerance, Denies dyspnea on exertion, Denies edema, Denies high blood pressure, Denies irregular heart beat, Denies leg edema, Denies orthopnea, Denies palpitations, Denies paroxysmal nocturnal dyspnea, Denies phlebitis, Denies syncope Respiratory: Reports congestion, Denies as per HPI, Denies cough, Denies cough with sputum, Denies dyspnea, Denies excessive sputum, Denies hemoptysis, Denies home oxygen, Denies pain, Denies pain on inspiration, Denies pleurisy, Denies respiratory infections, Denies sleep apnea, Denies snoring, Denies wheezing Gastrointestinal: Reports dyspepsia, Reports nausea, Denies as per HPI, Denies abdominal pain, Denies belching, Denies bloating, Denies BRBPR, Denies change in bowel habits, Denies coffee ground emesis, Denies constipation, Denies diarrhea, Denies early satiety, Denies excessive gas, Denies heartburn, Denies hematemesis, Denies hematochezia, Denies indigestion, Denies jaundice, Denies lactose intolerance, Denies loss of appetite, Denies melena, Denies vomiting Genitourinary: Reports urinary frequency, Denies as per HPI, Denies decreased libido, Denies difficulties fathering child, Denies discharge, Denies dysuria, Denies erectile dysfunction, Denies flank pain, Denies genital pain, Denies genital sores, Denies hematuria, Denies impotence, Denies incontinence, Denies kidney stones, Denies nocturia, Denies polyuria, Denies testicular lump, Denies testicular pain, Denies urinary hesitancy, Denies urinary retention Musculoskeletal: Reports low back pain, Reports myalgias, Reports neck pain, Denies as per HPI, Denies arm numbness/tingling, Denies atrophy, Denies fractures, Denies frequent falls, Denies gait dysfunction, Denies hot joints, Denies leg numbness/tingling, Denies limitation of motion, Denies loss of height , Denies morning stiffness, Denies muscle cramps, Denies muscle weakness, Denies neck stiffness, Denies prior amputations, Denies redness of joints, Denies shooting arm pain, Denies shooting leg pain Integumentary: Denies as per HPI, Denies acne, Denies boils, Denies brittle nails, Denies change in hair/nails, Denies color changes, Denies darkening of skin, Denies depigmentation, Denies dryness, Denies foot/leg ulcers, Denies growths, Denies hirsutism, Denies lesions, Denies onychomycosis, Denies pruritus , Denies rash, Denies sores, Denies striae, Denies unusual bruising, Denies wounds Neurological: Reports ataxia, Reports confusion, Reports gait dysfunction, Reports lack of coordination, Reports memory loss, Reports motor disturbance, Reports numbness, Reports paresthesias, Reports spasticity, Reports tremors, Reports weakness, Denies as per HPI, Denies aphasia, Denies balance difficulties , Denies burning pain, Denies change in mentation, Denies change in smell/taste , Denies change in speech, Denies convulsions, Denies double vision, Denies head injury, Denies headaches, Denies hearing difficulties, Denies loss of vision, Denies migraines, Denies paralysis, Denies seizures, Denies sensory deficit, Denies syncope, Denies tic, Denies tingling, Denies transient paralysis , Denies vertigo, Denies visual changes Psychiatric: Reports anhedonia, Reports anxiety, Reports change in appetite, Reports change in sleep habits, Reports confusion, Reports disorientation, Reports irritability, Reports sleep disturbances, Denies as per HPI, Denies anxiety attacks, Denies change in libido, Denies depression, Denies difficulty concentrating, Denies hallucinations, Denies hopelessness, Denies hypersomnia, Denies insomnia, Denies memory loss, Denies mood swings, Denies paranoia, Denies sadness/tearfulness, Denies suicidal ideation Endocrine: Reports cold intolerance, Reports fatigue, Denies as per HPI, Denies deepening of the voice, Denies excessive sweating, Denies excessive thirst, Denies flushing, Denies heat intolerance, Denies high blood sugars, Denies increase in ring/shoe/hat size, Denies low blood sugars, Denies nocturia, Denies palpitations, Denies polydipsia, Denies polyphagia, Denies polyuria, Denies proptosis, Denies recent glucocorticoid use, Denies thyroid mass, Denies weight change Hematologic/Lymphatic: Reports easy bruising, Denies as per HPI, Denies easy bleeding, Denies lymphadenopathy, Denies lymphedema, Denies thrombophilia Allergic/Immunologic: Denies as per HPI, Denies allergic rhinitis, Denies anaphylaxis, Denies angioedema, Denies gluten intolerance, Denies persistent infections, Denies seasonal allergies, Denies urticaria, Denies wheezing Past Medical History Past Medical History: CVA/TIA, Dementia, Diabetes Mellitus, GERD/Reflux, Osteoarthritis (OA), Pneumonia, Vascular Disorder Additional Past Medical History / Comment(s): PANCREATITIS, CHRONIC SKIN ULCERS, ESOPHAGITIS, "EITHER SCARLET FEVER OR RHUEMATIC FEVER CHILD", BRAIN ANEURYSM. History of Any Multi-Drug Resistant Organisms: Unobtainable Past Surgical History: Back Surgery Additional Past Surgical History / Comment(s): SEVRAL BACK SX, CATARACTS," HAD SX D/T ABCESS THAT DEVELOPED AFTER HAVING PANCREATITIS" Past Anesthesia/Blood Transfusion Reactions: No Reported Reaction Additional Past Anesthesia/Blood Transfusion Reaction / Comment(s): ALLERGIC TO IV CONTRAST DYE Past Psychological History: No Psychological Hx Reported, Unable to Obtain Smoking Status: Former smoker Past Alcohol Use History: None Reported Past Drug Use History: None Reported - Past Family History Father Additional Family Medical History / Comment(s): FROM BLACK LUNG Mother Family Medical History: CVA/TIA Medications and Allergies Home Medications Medication Instructions Recorded Confirmed Type Acetaminophen Tab [Tylenol] 650 mg PO Q6H PRN 10/16/15 06/20/16 History Calcium Carbonate/Vitamin D3 1 tab PO DAILY 10/16/15 06/20/16 History [Calcium 600-Vit D3 400 Tablet] Cyanocobalamin [Vitamin B-12] 500 mcg PO DAILY 10/16/15 06/20/16 History Famotidine [Pepcid] 20 mg PO HS 10/16/15 06/20/16 History Fluticasone Nasal [place] [Flonase 1 spray EA NOSTRIL BID 10/16/15 06/20/16 History Nasal [place]] Glimepiride [Amaryl] 1 mg PO AC-BRKFST 10/16/15 06/20/16 History Inzo 1 applic TOPICAL BID PRN 10/16/15 06/20/16 History Melatonin 6 mg PO HS 10/16/15 06/20/16 History Metoprolol Tartrate [Lopressor] 12.5 mg PO BID 10/16/15 06/20/16 History Triamcinolone 0.1% Cream [Kenalog] 1 applicatio TOPICAL BID 10/16/15 06/20/16 History Aspirin 325 mg PO DAILY 06/12/16 06/20/16 History Mylanta Susp 30 ml PO Q4H PRN 06/12/16 06/20/16 History Potassium Chloride [Klor-Con 20] 20 meq PO DAILY 06/12/16 06/20/16 History metFORMIN HCL [Glucophage] 500 mg PO TID 06/12/16 06/20/16 History Allergies Allergy/AdvReac Type Severity Reaction Status Date / Time iodine Allergy Unknown Verified 06/20/16 20:10 Physical Exam Vitals: Vital Signs Temp Pulse Pulse Resp BP BP Pulse Ox 06/21/16 07:00 95.9 F L 108 H 20 149/92 93 L 06/20/16 23:55 96.8 F L 106 H 20 153/71 93 L 06/20/16 22:20 104 H 18 136/83 95 06/20/16 21:50 106 H 20 176/82 96 Intake and Output 06/20/16 06/21/16 06/21/16 22:59 06:59 14:59 Intake Total 50 0 Output Total 1800 Balance -1750 0 Intake: Oral 50 0 Output: Urine 1800 Straight 900 Other: Voiding Method Diaper Diaper Incontinent Incontinent # Voids 0 Weight 67.5 kg - Constitutional General appearance: no average body habitus, no cooperative, disheveled, no mild distress, no morbidly obese, no acute distress, no obese, no severe distress, no thin - EENT Eyes: no abnormal pupil, no anicteric sclerae, no disc margins sharp, no edentulous, no EOMI, no PERRLA, no fundus normal, no photophobia, no dentition normal, no poor dentition, no ptosis, no scleral icterus, normal appearance ENT: no hard of hearing, no hearing grossly normal, no NA/AT, no normal oropharynx, no other, no pharyngeal erythema, no thrush, no tonsillar exudates, no tonsillar swelling Ears: bilateral: normal - Neck Neck: no lymphadenopathy, normal ROM, no other, no rigidity, no stridor, no thyromegaly Carotids: bilateral: upstroke normal Thyroid: bilateral: normal size - Respiratory Respiratory: bilateral: CTA, diminished - Cardiovascular Rhythm: regular Heart sounds: normal: S1, S2 Abnormal Heart Sounds: systolic murmur - Gastrointestinal General gastrointestinal: no absent bowel sounds, decreased bowel sounds, no distended, no hepatomegaly, no hyperactive bowel sounds, no normal bowel sounds , no organomegaly, no rigid, no scaphoid, soft, no splenomegaly, no tenderness, no umbilical hernia, no ventral hernia - Integumentary Integumentary: no calor, no cellulitis, no cyanotic, no decreased turgor, flushed, no jaundiced, no normal, no normal turgor, pale, rash, no ulcer - Musculoskeletal Musculoskeletal: no gait normal, generalized weakness, strength equal bilaterally, no right sided weakness, no left sided weakness - Psychiatric Psychiatric: no A&O x's 3, no appropriate affect, no intact judgment & insight Results CBC & Chem 7: 06/20/16 20:45 06/20/16 20:45 Labs: Abnormal Lab Results - Last 24 Hours (Table) 06/21/16 06/21/16 06/21/16 Range/Units 00:12 05:46 06:59 POC Glucose (mg/dL) 141 H (75-99) mg/dL Plasma Lactic Acid Philipp 4.5 H* 2.3 H* (0.7-2.0) mmol/L Troponin I (0.000-0.034) ng/mL 06/21/16 06/21/16 Range/Units 09:08 11:37 POC Glucose (mg/dL) 106 H (75-99) mg/dL Plasma Lactic Acid Philipp (0.7-2.0) mmol/L Troponin I 0.047 H* (0.000-0.034) ng/mL Thrombosis Risk Factor Assmnt - DVT/VTE Prophylaxis DVT/VTE Prophylaxis: Mechanical Prophylaxis ordered - Choose All That Apply Any of the Below Risk Factors Present?: No Other Risk Factors: Yes Each Risk Factor Represents 3 Points: Age 75 years or older, History of DVT/PE Thrombosis Risk Factor Assessment Total Risk Factor Score: 6 Thrombosis Risk Factor Assessment Level: High Risk Assessment and Plan Plan: 1 change in mental status: Combination of severe dehydration, recovering from infection, possible side effect medication. Patient be hospitalized watch patient hemodynamic status hydration and possible adjustment of his medication. 2 severe dehydration: Even blood pressure is high but his chloride level is 120 with the current symptoms patient be hydrated gently and re-evaluate his blood work and next 24 hours. 3 recent history of sepsis and UTI was treated with Macrobid continue medication for now. 4 elevated lactic acid: Not a clear etiology at this point continue to exclude the possibility of sepsis or infection of any kind chest x-ray didn't show any infiltrate urine test was negative today white blood cell are not much elevated. 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 Patient is not on any medication currently. 6 diabetes: Patient is on Amaryl and metformin continue Accu-Chek with sliding scales coverage. 7 chronic pain syndrome: Has been on Butran along with Neurontin. 8 hypertension: Has been on Lopressor. 9 chronic edema: Has been on Lasix in the past which should be held for now. 10 possible side effect medication: Including his gabapentin along with Butran will decrease gabapentin down to 400 mg twice a day continue Butran talk with the family and see if patient can be switched to an oral agent but smaller dose. 11 DVT prophylaxis: Patient was started on Lovenox 40 mg subcutaneous daily. GI prophylaxis: Patient be on Pepcid 20 mg daily. CODE STATUS: Full code. Expect patient from this admission: Patient be the hospital for at least 2 nights.
[2016-06-21 16:59] VITALS: BMI 21.9
[2016-06-21 17:19] LABS: Glucose,Whole Blood 104 mg/dL (75-99)
[2016-06-21] MEDS ORDERED: MELATONIN 3 MG TABLET PO SCH (21:00)
[2016-06-21] MEDS ORDERED: FAMOTIDINE 20 MG TAB PO SCH (21:00)
[2016-06-21 21:45] LABS: Glucose,Whole Blood 97 mg/dL (75-99)
[2016-06-22 02:31] LABS: Glucose,Whole Blood 111 mg/dL (75-99)
[2016-06-22] MEDS ORDERED: ALBUTEROL NEBULIZED 2.5 MG/3 ML INHALATION STA (02:45)
[2016-06-22] MEDS ORDERED: LORazepam 2 MG/ML SYRINGE IV STA (02:46)
[2016-06-22] MEDS: METOPROLOL TARTRATE 12.5 MG TAB PO SCH ×2 (03:17→08:37)
[2016-06-22] MEDS: SODIUM CHLORIDE 0.9% 1,000 ML IV SCH ×4 (05:15→23:22)
[2016-06-22] MEDS ORDERED: PROPOFOL 50 ML IV ONE (07:33)
[2016-06-22 07:34] LABS: Glucose,Whole Blood 122 mg/dL (75-99)
--- NOTE | 2016-06-22 07:56 | XR ---
EXAMINATION TYPE: XR chest 1V portable DATE OF EXAM: 06/22/2016 7:52 AM COMPARISON: 06/20/2016 HISTORY: Shortness of breath TECHNIQUE: Single frontal view of the chest is obtained. FINDINGS: ET tube somewhat low in position measuring 1 cm above the emmett. Left lower lobe atelecta sis or infiltrate with small effusion stable. Underlying COPD noted. Tiny right pleural effusion susp ected. Hypertrophic change of the spine noted. IMPRESSION: 1. ET tube low in position only 1 cm above emmett. 2. Stable left lower lobe infiltrate and bilateral tiny pleural effusions superimposed on a backgroun d COPD. 3. Vague area of pulmonary nodule left upper lobe not entirely excluded.
[2016-06-22 08:12] LABS: Appearance,Urine Clear (Clear); Bilirubin,Urine Negative (Negative); Glucose,Urine (UA) Negative (Negative); Ketones,Urine 1+ (Negative); Leukocyte Esterase,Urine Negative (Negative); Nitrite,Urine Negative (Negative); Protein,Urine Trace (Negative); UA Billing (MACRO vs. MICRO) CHEM; Urobilinogen,Urine <2.0 mg/dL (<2.0)
[2016-06-22 08:17] LABS: ABG HCO3 16 mmol/L (21-25); ABG PCO2 33 mmHg (35-45); ABG PO2 246 mmHg (83-108)
[2016-06-22 08:18] LABS: ABG Base Excess -9.3 mmol/L; ABG Oxygen Saturation 99.8 % (94-97); ABG TCO2 17 mmol/L (19-24)
[2016-06-22] MEDS ORDERED: HYDROmorphone 1 MG/ML 1 ML SYRINGE IVP PRN (08:23)
[2016-06-22] MEDS ORDERED: PROPOFOL 500 MG in EMPTY BAG 1 BAG IV SCH (08:30)
[2016-06-22] MEDS: metFORMIN 500 MG TAB PO SCH (08:34)
[2016-06-22 08:35] LABS: Basophils % (A) 0 %; CH 32.7; CHCM 32.8; Eosinophils # (A) 0.1 k/uL (0-0.7); Eosinophils % (A) 0 %; HCT 38.8 % (39.0-53.0); HDW 3.01; HGB 12.6 gm/dL (13.0-17.5); Luc # (Auto) 0.09; Luc % (Auto) 1; Lymphocytes # (A) 0.7 k/uL (1.0-4.8); Lymphocytes % (A) 5 %; MCH 32.7 pg (25.0-35.0); MCHC 32.6 g/dL (31.0-37.0); MCV 100.3 fL (80.0-100.0); Macrocytosis Slight; Mean Platelet Volume 8.2; Monocytes # (A) 0.4 k/uL (0-1.0); Monocytes % (A) 3 %; Neutrophils # (A) 11.7 k/uL (1.3-7.7); Neutrophils % (A) 91 %; RBC 3.87 m/uL (4.30-5.90); RDW 14.9 % (11.5-15.5); WBC 12.9 k/uL (3.8-10.6); WBC (Perox) 12.79
[2016-06-22] MEDS: FLUTICASONE 50MCG/SPRAY NASAL 16GM EA NOSTRIL SCH (08:36)
[2016-06-22] MEDS: CALCIUM CARB-VIT D 500MG-200UN 1 EACH TAB PO SCH (08:37)
[2016-06-22 08:53] LABS: INR 1.1 (<1.1); Prothrombin Time 11.4 sec (9.0-12.0)
[2016-06-22 08:58] LABS: Partial Thromboplastin Time 20.8 sec (22.0-30.0)
[2016-06-22] MEDS ORDERED: NOREPINEPHRINE 4 MG in SODIUM CHLORIDE 0.9% 250 ML IV SCH (09:00)
[2016-06-22 09:01] LABS: ALT 108 U/L (21-72); AST 82 U/L (17-59); Alkaline Phosphatase 145 U/L (38-126); Anion Gap 10 mmol/L; Blood Urea Nitrogen 10 mg/dL (9-20); Calcium 7.6 mg/dL (8.4-10.2); Carbon Dioxide 20 mmol/L (22-30); Chloride 113 mmol/L (98-107); Glucose 120 mg/dL (74-99); Non-African American GFR(MDRD) >60 (>60 ml/min/1.73 sqM); Potassium 3.7 mmol/L (3.5-5.1); Sodium 143 mmol/L (137-145); Total Bilirubin 1.1 mg/dL (0.2-1.3); Total Protein 4.8 g/dL (6.3-8.2)
[2016-06-22] MEDS: CYANOCOBALAMIN 500 MCG TAB PO SCH (09:34)
[2016-06-22] MEDS: ASPIRIN 81 MG CHEW PO SCH (09:34)
[2016-06-22] MEDS: ENOXAPARIN 40 MG/0.4 ML SYRINGE SQ SCH (09:34)
--- NOTE | 2016-06-22 09:58 | P.CNPUL ---
History of Present Illness Consult date: 06/22/16 Reason for consult: other Chief complaint: Cardiopulmonary arrest, respiratory failure History of present illness: This is a 86-year-old person who was admitted on June 20 for dehydration mental status changes possible UTI. The patient was on the floor and apparently had a episode of cardiopulmonary arrest today. Apparently was noted on the monitor that his rhythm was widening out numerous long pauses and the patient was found to be unresponsive without pulse or respirations when the nurses went into the room to see him. He had a brief episode of cardiopulmonary resuscitation with chest compressions he was intubated by anesthesia it probably lasted about 6-8 minutes. He received 1 round of epinephrine 1 mg. The patient was asystolic initially. After he was resuscitated, he was moved back up to the ICU. I was called by the nurse. Currently the patient's on the assist control mode rate of 12.450 FiO2 of 1% PEEP of 5 blood gases looked pretty good with a pO2 of 2 things 46 pCO2 330.30. Consistent with a mild metabolic acidosis. She is also getting appointment 9 IV at 100 the [facility] 30 mics per kilogram per minute and has received 2 L of fluid. The fluid was 0.9. I asked Snehal the nurse to DC the DIP or van for time time being. He seems to be waking up. We may be EXTUBATED. I'M GOING TO GIVE HIM A TRIAL OF PSV 5 CPAP OF 5. WE'LL DO SOME WEANING PARAMETERS PRIMARY IS A CUFF LEAK. IF NECESSARY WE'LL GET A BLOOD GAS TO MAKE A DETERMINATION. HE MAY OR MAY NOT BE READY. THE PATIENT APPARENTLY SUFFERS FROM SEVERE DEMENTIA. ALSO APPARENTLY HAS A HISTORY OF HYPERTENSION AND DIABETES WELL HISTORY OF PANCREATITIS GERD DJD PNEUMONIA P VOD CVA ESOPHAGITIS SCARLET FEVER/RHEUMATIC FEVER. Review of Systems ROS unobtainable: due to endotracheal tube Past Medical History Past Medical History: CVA/TIA, Dementia, Diabetes Mellitus, GERD/Reflux, Osteoarthritis (OA), Pneumonia, Vascular Disorder Additional Past Medical History / Comment(s): PANCREATITIS, CHRONIC SKIN ULCERS, ESOPHAGITIS, "EITHER SCARLET FEVER OR RHUEMATIC FEVER CHILD", BRAIN ANEURYSM. History of Any Multi-Drug Resistant Organisms: Unobtainable Past Surgical History: Back Surgery Additional Past Surgical History / Comment(s): SEVRAL BACK SX, CATARACTS," HAD SX D/T ABCESS THAT DEVELOPED AFTER HAVING PANCREATITIS" Past Anesthesia/Blood Transfusion Reactions: No Reported Reaction Additional Past Anesthesia/Blood Transfusion Reaction / Comment(s): ALLERGIC TO IV CONTRAST DYE Past Psychological History: No Psychological Hx Reported, Unable to Obtain Smoking Status: Former smoker Past Alcohol Use History: None Reported Past Drug Use History: None Reported - Past Family History Father Additional Family Medical History / Comment(s): FROM BLACK LUNG Mother Family Medical History: CVA/TIA Medications and Allergies Home Medications Medication Instructions Recorded Confirmed Type Acetaminophen Tab [Tylenol] 650 mg PO Q6H PRN 10/16/15 06/20/16 History Calcium Carbonate/Vitamin D3 1 tab PO DAILY 10/16/15 06/20/16 History [Calcium 600-Vit D3 400 Tablet] Cyanocobalamin [Vitamin B-12] 500 mcg PO DAILY 10/16/15 06/20/16 History Famotidine [Pepcid] 20 mg PO HS 10/16/15 06/20/16 History Fluticasone Nasal [place] [Flonase 1 spray EA NOSTRIL BID 10/16/15 06/20/16 History Nasal [place]] Glimepiride [Amaryl] 1 mg PO AC-[id number] 10/16/15 06/20/16 History Inzo 1 applic TOPICAL BID PRN 10/16/15 06/20/16 History Melatonin 6 mg PO HS 10/16/15 06/20/16 History Metoprolol Tartrate [Lopressor] 12.5 mg PO BID 10/16/15 06/20/16 History Triamcinolone 0.1% Cream [Kenalog] 1 applicatio TOPICAL BID 10/16/15 06/20/16 History Aspirin 325 mg PO DAILY 06/12/16 06/20/16 History Mylanta Susp 30 ml PO Q4H PRN 06/12/16 06/20/16 History Potassium Chloride [Klor-Con 20] 20 meq PO DAILY 06/12/16 06/20/16 History metFORMIN HCL [Glucophage] 500 mg PO TID 06/12/16 06/20/16 History Allergies Allergy/AdvReac Type Severity Reaction Status Date / Time iodine Allergy Unknown Verified 06/20/16 20:10 Physical Exam Osteopathic Statement: *. No significant issues noted on an osteopathic structural exam other than those noted in the History and Physical/Consult. Vitals: Vital Signs Temp Pulse Pulse Resp BP BP Pulse Ox 06/22/16 08:20 97.8 F 135 H 20 104/55 06/22/16 08:10 120 H 29 H 104/55 99 06/22/16 08:00 120 H 27 H 91/57 99 06/22/16 07:50 121 H 20 116/65 100 06/22/16 07:40 141 H 28 H 116/65 97 06/22/16 07:30 119 H 16 125/69 80 L 06/22/16 07:27 21 97 06/22/16 02:45 98 06/22/16 00:00 109 H 06/21/16 23:00 98.3 F 121 H 20 159/64 91 L 06/21/16 15:00 95.9 F L 92 16 165/86 97 Intake and Output 06/21/16 06/22/16 06/22/16 22:59 06:59 14:59 Output Total 150 Balance -150 Output: Urine 150 Other: Voiding Method Urinal # Voids 1 1 Weight 67.5 kg No acute distress. The patient's intubated. NG tube in place. Obviously can' t talk to the patient. HEENT examination is grossly unremarkable. Endotracheal tube and NG tube noted. Next Neck supple. Cardiovascular examination reveals regular rhythm rate. Lungs reveal a few scattered mild rhonchi. No wheezes or crackles. Abdomen soft. Extremities are intact. Results - Laboratory Findings CBC and BMP: 06/22/16 08:25 06/22/16 08:25 ABG ABG pH 7.30 (7.35-7.45) L 06/22/16 08:10 ABG pCO2 33 mmHg (35-45) L 06/22/16 08:10 ABG pO2 246 mmHg (83-108) H 06/22/16 08:10 ABG O2 Saturation 99.8 % (94-97) H 06/22/16 08:10 PT/INR, D-dimer PT 11.4 sec (9.0-12.0) 06/22/16 08:25 INR 1.1 (<1.1) 06/22/16 08:25 Abnormal lab findings: Abnormal Labs 06/21/16 06/21/16 06/21/16 00:12 05:46 06:59 WBC RBC Hgb Hct MCV Plt Count Neutrophils # Lymphocytes # APTT ABG pH ABG pCO2 ABG pO2 ABG HCO3 ABG Total CO2 ABG O2 Saturation Chloride Carbon Dioxide Creatinine Glucose POC Glucose (mg/dL) 141 H Plasma Lactic Acid Philipp 4.5 H* 2.3 H* Calcium AST ALT Alkaline Phosphatase Troponin I Total Protein Albumin Urine Protein Urine Ketones 06/21/16 06/21/16 06/21/16 09:08 11:37 17:00 WBC RBC Hgb Hct MCV Plt Count Neutrophils # Lymphocytes # APTT ABG pH ABG pCO2 ABG pO2 ABG HCO3 ABG Total CO2 ABG O2 Saturation Chloride Carbon Dioxide Creatinine Glucose POC Glucose (mg/dL) 106 H 104 H Plasma Lactic Acid Philipp Calcium AST ALT Alkaline Phosphatase Troponin I 0.047 H* Total Protein Albumin Urine Protein Urine Ketones 06/22/16 06/22/16 06/22/16 02:19 07:32 08:00 WBC RBC Hgb Hct MCV Plt Count Neutrophils # Lymphocytes # APTT ABG pH ABG pCO2 ABG pO2 ABG HCO3 ABG Total CO2 ABG O2 Saturation Chloride Carbon Dioxide Creatinine Glucose POC Glucose (mg/dL) 111 H 122 H Plasma Lactic Acid Philipp Calcium AST ALT Alkaline Phosphatase Troponin I Total Protein Albumin Urine Protein Trace H Urine Ketones 1+ H 06/22/16 06/22/16 06/22/16 08:10 08:25 08:25 WBC 12.9 H RBC 3.87 L Hgb 12.6 L Hct 38.8 L MCV 100.3 H Plt Count 130 L Neutrophils # 11.7 H Lymphocytes # 0.7 L APTT ABG pH 7.30 L ABG pCO2 33 L ABG pO2 246 H ABG HCO3 16 L ABG Total CO2 17 L ABG O2 Saturation 99.8 H Chloride 113 H Carbon Dioxide 20 L Creatinine 0.36 L Glucose 120 H POC Glucose (mg/dL) Plasma Lactic Acid Philipp Calcium 7.6 L AST 82 H ALT 108 H Alkaline Phosphatase 145 H Troponin I Total Protein 4.8 L Albumin 2.3 L Urine Protein Urine Ketones 06/22/16 06/22/16 08:25 08:25 WBC RBC Hgb Hct MCV Plt Count Neutrophils # Lymphocytes # APTT 20.8 L ABG pH ABG pCO2 ABG pO2 ABG HCO3 ABG Total CO2 ABG O2 Saturation Chloride Carbon Dioxide Creatinine Glucose POC Glucose (mg/dL) Plasma Lactic Acid Philipp 3.1 H* Calcium AST ALT Alkaline Phosphatase Troponin I Total Protein Albumin Urine Protein Urine Ketones - Diagnostic Findings Chest x-ray: image reviewed (Chest x-ray labs medications are all reviewed.) Assessment and Plan (1) Cardiopulmonary arrest with successful resuscitation Status: Acute (2) Altered mental status Status: Acute (3) Dehydration Status: Acute (4) UTI (urinary tract infection) Status: Acute Plan: Plan The patient be placed on PSV 5 CPAP of 5. We'll get some weaning parameters and possibly a blood gas. We'll do a cuff leak test. We held the dipper band. The patient's on 0.9 and 100. Labs x-rays medications are all reviewed. Chest x-ray looks pretty clear. The etiology of his cardiopulmonary arrest is unclear. We'll continue to follow. Prognosis is very guarded given his poor prehospital situation including severe dementia and general medical debility. Time with Patient: Greater than 30
[2016-06-22] MEDS ORDERED: IPRATROPIUM 0.5 MG/2.5 ML NEBU INHALATION PRN (10:10)
[2016-06-22] MEDS ORDERED: LEVALBUTEROL NEB 1.25 MG/3 ML AMP INHALATION PRN (10:10)
[2016-06-22 10:54] LABS: ABG Base Excess -10.3 mmol/L; ABG HCO3 16 mmol/L (21-25); ABG PCO2 43 mmHg (35-45); ABG PO2 70 mmHg (83-108); ABG TCO2 18 mmol/L (19-24)
[2016-06-22 10:55] LABS: ABG Oxygen Saturation 89.5 % (94-97)
[2016-06-22] MEDS ORDERED: LEVALBUTEROL NEB (CONC) 1.25 MG/0.5 ML AMP INHALATION SCH (12:00)
[2016-06-22] MEDS ORDERED: IPRATROPIUM 0.5 MG/2.5 ML NEBU INHALATION SCH (12:00)
--- NOTE | 2016-06-22 16:19 | CONS ---
DATE OF CONSULTATION: Mr. Sunny Barraza was admitted for weakness and mental status changes and could not give much of a history. When I saw him he was intubated in the ICU. I interviewed his daughters in detail. Last month there was a change in his speech that was quite sudden and abrupt and since then there has been a progressive decline in his mental health and his speech. It was difficult to understand him. At times he was found gasping and not able to take a full breath. Yesterday he became bradycardic but he is actually also hypoxic at that time and was having respiratory distress, which led to intubation. He is currently intubated. He was not DNR prior to this. I was consulted by ( ) for possible permanent pacemaker implantation. I reviewed his monitor strips. He appears to be in sinus tachycardia most times with intermittent severe bradycardia that seems to have correlated with his period of respiratory distress. Review of systems is not available at this time. History of declining neurologic status and mental health over the last month. Diabetes, GERD, history of pancreatitis. SOCIAL HISTORY: He is a former smoker. Medication list was reviewed and is documented in the chart and includes Tylenol, calcium, vitamin B12, Pepcid, glimepiride, ( ) topical application, melatonin, metoprolol 12.5 mg twice daily, aspirin, Mylanta, potassium, metformin. ALLERGIES TO IODINE. On examination, he is hypotensive at this time 63/36 mmHg and intubated. Pulse rate is about 100 beats a minute sinus tachycardia. Breath sounds are reduced bilaterally. Heart sounds are soft, normal. No murmur. No rub, no gallop. Extremities are warm. He is emaciated. He is intubated at this time. IMPRESSION: 1. Sudden episodes of bradycardia and pauses correlating with acute hypoxic respiratory failure. 2. History of declining mental health with speech disturbance. He may have suffered a stroke at that time last month, but he has not recovered from it since. SUGGEST: I had a very ghazala discussion with both daughters, who are having a very hard time making decisions. They understand that their father has had significant change in his quality of life and is deteriorating quite rapidly in front of their eyes. While they do not want him to suffer they are having a hard time making a decision regarding a DNR status. I had a fairly detailed discussion with him and I would recommend: 1. No permanent pacemaker implantation. 2. DNR status in the sense that now that he is intubated no further additional measures such as IV pressors, IV inotropes or chest compression should be performed. If we are able to extubate him he should not be re-intubated and should be DNR for reintubation.
[2016-06-22] MEDS: MORPHINE SULFATE (100 MG/2 ML) 100 MG in SODIUM CHLORIDE 0.9% 100 ML IV SCH (16:36)
[2016-06-22] MEDS ORDERED: LORazepam 2 MG/ML SYRINGE IV PRN (16:44)
[2016-06-22 23:30] VITALS: TEMP 97.1
--- NOTE | 2016-06-22 23:38 | P.PN ---
Subjective Principal diagnosis: Severe dehydration, failure to thrive, change in mental status, confusion, severe bradycardia and respiratory failure requiring mechanical ventilation, possible need for pacemaker 86-year-old male one of Dr. Banegas's patient who is an [facility] was hospitalized last in June 12 for altered mental status change and found to have urinary tract infection was treated and sent to the [facility]ent[facility] on 06/13/2016. Patient was sent to the emergency department at [facility] on on 2016 for altered mental status change with severe dehydration hypotension and worsening mentation. Patient was seen and evaluated found to have mild dehydration and significant decrease in urine output with mild hypotension. Was started on hydration and admitted to the hospital with the above problem. No history of infection found this time also no history of injury fall. No family around and no provide history from [facility]. Arrange for a meeting with the family for 06/22/2016, family spent the night that the patient bedside and early this morning he developed to have severe bradycardia with long post, the code was: Patient ended up being resuscitated with low blood pressure initially and not breathing was intubated and placed on mechanical ventilation and was sent to the unit. With his severe bradycardia patient was giving 1 dose of atropine. Pulse start increasing shortly after and has improved. Seen the patient on mechanical ventilation he looks more alert agitated than blood pressure is quite bit high from the pain factor been on the vent with a mild anxiety. Long discussion with the family update on current condition family feels that he declined quite but the last few weeks with not clear circumstances. Explanation with the infection and the bradycardia and possible poses patient was having mild hypoxic encephalopathy from it specially if it's happening repeatedly at night which had probably created more small vessel disease. Also patient has been complaining of mild odynophagia and mild dysphagia which will consult gastroenterology for possible EGD also patient scheduled for a swallow eval, family are not finalized yet whether they will go for a PEG tube and pacer are not something they will think about it and the answer us in the next 24 hours. Objective - Vital Signs Vital signs: Vital Signs Temp 97.9 F 06/22/16 12:00 Pulse 100 06/22/16 14:00 Resp 9 L 06/22/16 14:00 BP 63/36 06/22/16 14:00 Pulse Ox 98 06/22/16 14:00 Intake & Output 06/21/16 06/22/16 06/22/16 18:59 06:59 18:59 Intake Total 800 3707.125 Output Total 935 395 9901 Balance 450 -150 2502.125 Weight 67.5 kg 67.5 kg Intake: IV 800 700 Sodium Chloride 0.9% 1, 800 700 000 ml @ 100 mls/hr IV . Q10H [facility] Rx#:[id number] Intake, IV Titration 3007.125 Amount Propofol 500 mg In Empty 10.125 Bag 1 bag @ Titrate IV . Q0M [facility] Rx#:[id number] Sodium Chloride 0.9% 1, 2997 000 ml @ 999 mls/hr IV . Q1H1M [facility] Rx#:[id number] Oral 0 0 Output: Urine 549 843 8825 Straight 900 Other: Voiding Method Urinal Urinal Indwelling Catheter # Voids 1 1 # Bowel Movements 0 0 - Constitutional Constitutional Comment(s): On mechanical ventilation this morning General appearance: Present: disheveled. Absent: average body habitus, cooperative, mild distress, morbidly obese, no acute distress, obese, severe distress, thin - EENT Eyes: Present: abnormal pupil, normal appearance. Absent: anicteric sclerae, disc margins sharp, edentulous, EOMI, PERRLA, fundus normal, photophobia, dentition normal, poor dentition, ptosis, scleral icterus ENT: Present: normal oropharynx. Absent: hard of hearing, hearing grossly normal, NA/AT, other, pharyngeal erythema, thrush, tonsillar exudates, tonsillar swelling Ears: bilateral: normal - Neck Neck: Present: normal ROM. Absent: lymphadenopathy, other, rigidity, stridor, thyromegaly Carotids: bilateral: upstroke normal Thyroid: bilateral: normal size - Respiratory Respiratory: right: prolonged expiration, bilateral: diminished, dullness, rales , rhonchi, wheezing - Cardiovascular Rhythm: irregularly irregular Heart sounds: normal: S1, S2 Abnormal Heart Sounds: Present: systolic murmur, S3 Gallop - Gastrointestinal General gastrointestinal: Present: decreased bowel sounds, normal bowel sounds, soft. Absent: absent bowel sounds, distended, hepatomegaly, hyperactive bowel sounds, organomegaly, rigid, scaphoid, splenomegaly, tenderness, umbilical hernia, ventral hernia - Integumentary Integumentary: Present: normal, pale, rash. Absent: calor, cellulitis, cyanotic , decreased turgor, flushed, jaundiced, normal turgor, ulcer - Neurologic Neurologic Comment(s): On mechanical ventilation - Musculoskeletal Musculoskeletal: Absent: gait normal, generalized weakness, strength equal bilaterally, right sided weakness, left sided weakness - Psychiatric Psychiatric Comment(s): On mechanical ventilation Psychiatric: Absent: A&O x's 3, appropriate affect, intact judgment & insight - Labs CBC & Chem 7: 06/22/16 08:25 06/22/16 08:25 Labs: Abnormal Lab Results - Last 24 Hours (Table) 06/21/16 06/22/16 06/22/16 Range/Units 17:00 02:19 07:32 WBC (3.8-10.6) k/uL RBC (4.30-5.90) m/uL Hgb (13.0-17.5) gm/dL Hct (39.0-53.0) % MCV (80.0-100.0) fL Plt Count (150-450) k/uL Neutrophils # (1.3-7.7) k/uL Lymphocytes # (1.0-4.8) k/uL APTT (22.0-30.0) sec ABG pH (7.35-7.45) ABG pCO2 (35-45) mmHg ABG pO2 (83-108) mmHg ABG HCO3 (21-25) mmol/L ABG Total CO2 (19-24) mmol/L ABG O2 Saturation (94-97) % Chloride (98-107) mmol/L Carbon Dioxide (22-30) mmol/L Creatinine (0.66-1.25) mg/dL Glucose (74-99) mg/dL POC Glucose (mg/dL) 104 H 111 H 122 H (75-99) mg/dL Plasma Lactic Acid Philipp (0.7-2.0) mmol/L Calcium (8.4-10.2) mg/dL AST (17-59) U/L ALT (21-72) U/L Alkaline Phosphatase (38-126) U/L Total Protein (6.3-8.2) g/dL Albumin (3.5-5.0) g/dL Urine Protein (Negative) Urine Ketones (Negative) 06/22/16 06/22/1606/22/17 Range/Units 08:00 08:10 08:25 WBC 12.9 H (3.8-10.6) k/uL RBC 3.87 L (4.30-5.90) m/uL Hgb 12.6 L (13.0-17.5) gm/dL Hct 38.8 L (39.0-53.0) % MCV 100.3 H (80.0-100.0) fL Plt Count 130 L (150-450) k/uL Neutrophils # 11.7 H (1.3-7.7) k/uL Lymphocytes # 0.7 L (1.0-4.8) k/uL APTT (22.0-30.0) sec ABG pH 7.30 L (7.35-7.45) ABG pCO2 33 L (35-45) mmHg ABG pO2 246 H (83-108) mmHg ABG HCO3 16 L (21-25) mmol/L ABG Total CO2 17 L (19-24) mmol/L ABG O2 Saturation 99.8 H (94-97) % Chloride (98-107) mmol/L Carbon Dioxide (22-30) mmol/L Creatinine (0.66-1.25) mg/dL Glucose (74-99) mg/dL POC Glucose (mg/dL) (75-99) mg/dL Plasma Lactic Acid Philipp (0.7-2.0) mmol/L Calcium (8.4-10.2) mg/dL AST (17-59) U/L ALT (21-72) U/L Alkaline Phosphatase (38-126) U/L Total Protein (6.3-8.2) g/dL Albumin (3.5-5.0) g/dL Urine Protein Trace H (Negative) Urine Ketones 1+ H (Negative) 06/22/16 06/22/16 06/22/16 Range/Units 08:25 08:25 08:25 WBC (3.8-10.6) k/uL RBC (4.30-5.90) m/uL Hgb (13.0-17.5) gm/dL Hct (39.0-53.0) % MCV (80.0-100.0) fL Plt Count (150-450) k/uL Neutrophils # (1.3-7.7) k/uL Lymphocytes # (1.0-4.8) k/uL APTT 20.8 L (22.0-30.0) sec ABG pH (7.35-7.45) ABG pCO2 (35-45) mmHg ABG pO2 (83-108) mmHg ABG HCO3 (21-25) mmol/L ABG Total CO2 (19-24) mmol/L ABG O2 Saturation (94-97) % Chloride 113 H (98-107) mmol/L Carbon Dioxide 20 L (22-30) mmol/L Creatinine 0.36 L (0.66-1.25) mg/dL Glucose 120 H (74-99) mg/dL POC Glucose (mg/dL) (75-99) mg/dL Plasma Lactic Acid Philipp 3.1 H* (0.7-2.0) mmol/L Calcium 7.6 L (8.4-10.2) mg/dL AST 82 H (17-59) U/L ALT 108 H (21-72) U/L Alkaline Phosphatase 145 H (38-126) U/L Total Protein 4.8 L (6.3-8.2) g/dL Albumin 2.3 L (3.5-5.0) g/dL Urine Protein (Negative) Urine Ketones (Negative) 06/22/16 Range/Units 10:45 WBC (3.8-10.6) k/uL RBC (4.30-5.90) m/uL Hgb (13.0-17.5) gm/dL Hct (39.0-53.0) % MCV (80.0-100.0) fL Plt Count (150-450) k/uL Neutrophils # (1.3-7.7) k/uL Lymphocytes # (1.0-4.8) k/uL APTT (22.0-30.0) sec ABG pH 7.20 L* (7.35-7.45) ABG pCO2 (35-45) mmHg ABG pO2 70 L (83-108) mmHg ABG HCO3 16 L (21-25) mmol/L ABG Total CO2 18 L (19-24) mmol/L ABG O2 Saturation 89.5 L (94-97) % Chloride (98-107) mmol/L Carbon Dioxide (22-30) mmol/L Creatinine (0.66-1.25) mg/dL Glucose (74-99) mg/dL POC Glucose (mg/dL) (75-99) mg/dL Plasma Lactic Acid Philipp (0.7-2.0) mmol/L Calcium (8.4-10.2) mg/dL AST (17-59) U/L ALT (21-72) U/L Alkaline Phosphatase (38-126) U/L Total Protein (6.3-8.2) g/dL Albumin (3.5-5.0) g/dL Urine Protein (Negative) Urine Ketones (Negative) Microbiology - Last 24 Hours (Table) 06/22/16 08:00 Urine Culture - Preliminary Urine,Catheterized Assessment and Plan Plan: 1 change in mental status: Combination of severe dehydration, recovering from infection, possible side effect medication. Patient be hospitalized watch patient hemodynamic status hydration and possible adjustment of his medication. 2 severe dehydration: Even blood pressure is high but his chloride level is 120 with the current symptoms patient be hydrated gently and re-evaluate his blood work and next 24 hours. 3 recent history of sepsis and UTI was treated with Macrobid continue medication for now. 4 respiratory failure: Most likely secondary to severe bradycardia and possible sick sinus syndrome had a created problem. Patient is on mechanical ventilation currently which will be extubated in the next 24 hours and the meanwhile continue current management. Pulmonary were consulted. 5 Severe bradycardia with possible sick sinus syndrome: With more seen this event this morning with long pauses and severe bradycardia, patient will be seen electrophysiology Dr. Vora and based on the symptoms and the heart rate in the next 24 hours of the side furthermore whether he need pacemaker. 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 Patient is not on any medication currently. 7 diabetes: Patient is on Amaryl and metformin continue Accu-Chek with sliding scales coverage. 8 chronic pain syndrome: Has been on Butran along with Neurontin. 9 hypertension: Has been on Lopressor. 10 chronic edema: Has been on Lasix in the past which should be held for now. 11 possible side effect medication: Including his gabapentin along with Butran will decrease gabapentin down to 400 mg twice a day continue Butran talk with the family and see if patient can be switched to an oral agent but smaller dose. 12 DVT prophylaxis: Patient was started on Lovenox 40 mg subcutaneous daily. GI prophylaxis: Patient be on Pepcid 20 mg daily.
[2016-06-23] MEDS: MORPHINE SULFATE (100 MG/2 ML) 100 MG in SODIUM CHLORIDE 0.9% 100 ML IV SCH (03:55)
[2016-06-23 05:51] VITALS: BP 55/25
[2016-06-23 07:31] VITALS: PULSE 104; RESP 7
[2016-06-23] MEDS ORDERED: PANTOPRAZOLE 40 MG/10 ML VIAL IVP SCH (09:00)
[2016-06-24] MEDS ORDERED: BUPRENORPHINE TRANSDERM SCH (00:01)
--- NOTE | 2016-06-25 13:32 | P.DS ---
Providers Date of admission: 06/20/16 21:30 Expected date of discharge: 06/23/16 Attending physician: Tarah Banegas Consults: 06/22/16 07:38 Consult Physician Stat Consulting Provider: James Williamson Consult Reason/Comments: pulmonary/critical care Do you want consulting provider notified?: Yes 06/22/16 11:15 Consult Physician Routine Consulting Provider: Marie Bernard Consult Reason/Comments: Dysphagia, might need EGD. Do you want consulting provider notified?: Yes Primary care physician: Tarah Banegas Hospital Course: 86-year-old male one of Dr. Banegas's patient who is an [facility] senior living was hospitalized last in June 12 for altered mental status change and found to have urinary tract infection was treated and sent to the senior living on 06/13/2016. Patient was sent to the emergency department at [facility] on on 2016 for altered mental status change with severe dehydration hypotension and worsening mentation. Patient was seen and evaluated found to have mild dehydration and significant decrease in urine output with mild hypotension. Was started on hydration and admitted to the hospital with the above problem. No history of infection found this time also no history of injury fall. No family around and no provide history from [facility]. Arrange for a meeting with the family for 06/22/2016, family spent the night that the patient bedside and early this morning he developed to have severe bradycardia with long post, the code was: Patient ended up being resuscitated with low blood pressure initially and not breathing was intubated and placed on mechanical ventilation and was sent to the unit. With his severe bradycardia patient was giving 1 dose of atropine. Pulse start increasing shortly after and has improved. Seen the patient on mechanical ventilation he looks more alert agitated than blood pressure is quite bit high from the pain factor been on the vent with a mild anxiety. Long discussion with the family update on current condition family feels that he declined quite but the last few weeks with not clear circumstances. Explanation with the infection and the bradycardia and possible poses patient was having mild hypoxic encephalopathy from it specially if it's happening repeatedly at night which had probably created more small vessel disease. Also patient has been complaining of mild odynophagia and mild dysphagia which will consult gastroenterology for possible EGD also patient scheduled for a swallow eval, family are not finalized yet whether they will go for a PEG tube and pacer are not something they will think about it and the answer us in the next 24 hours. 06/23: Patient's family ended up making him comfort care only and he was extubated. Patient on water plumber of June 23. Please see nursing documentation for details. 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 Svetlana Rome nurse practitioner acting as scribe for signing physician. Patient Condition at Discharge: Undetermined Plan - Discharge Summary Discharge Medication List Acetaminophen Tab [Tylenol] 650 mg PO Q6H PRN 10/16/15 [History] Calcium Carbonate/Vitamin D3 [Calcium 600-Vit D3 400 Tablet] 1 tab PO DAILY [History] Cyanocobalamin [Vitamin B-12] 500 mcg PO DAILY 10/16/15 [History] Famotidine [Pepcid] 20 mg PO HS 10/16/15 [History] Fluticasone Nasal [place] [Flonase Nasal [place]] 1 spray EA NOSTRIL BID 10/16/15 [ History] Gabapentin [Neurontin] 400 mg PO TID #90 cap 10/16/15 [Rx] Glimepiride [Amaryl] 1 mg PO [id number]-[id number] 10/16/15 [History] Inzo 1 applic TOPICAL BID PRN 10/16/15 [History] Melatonin 6 mg PO HS 10/16/15 [History] Metoprolol Tartrate [Lopressor] 12.5 mg PO BID 10/16/15 [History] Triamcinolone 0.1% Cream [Kenalog] 1 applicatio TOPICAL BID 10/16/15 [History] Aspirin 325 mg PO DAILY 06/12/16 [History] Mylanta Susp 30 ml PO Q4H PRN 06/12/16 [History] Potassium Chloride [Klor-Con 20] 20 meq PO DAILY 06/12/16 [History] metFORMIN HCL [Glucophage] 500 mg PO TID 06/12/16 [History] Buprenorphine [Butrans 10 MCG/HOUR] 1 patch TRANSDERM TU #4 patch.tdwk 06/13/16 [Rx] Furosemide [Lasix] 20 mg PO DAILY #0 06/13/16 [Rx] Nitrofurantoin Monohyd/M-Cryst [Macrobid] 100 mg PO Q12HR #14 cap 06/13/16 [Rx] Follow up Appointment(s)/Referral(s): Tarah Banegas MD [Primary Care Provider] - 1-2 days Discharge Disposition: - Preliminary Cause of Preliminary Cause of : acute hypoxic and hypercapnic respiratory failure with respiratory acidosis
== END 2016-06-23 11:14 | disposition expired | DRG 871 ==
LOC: EC 19:56 → 4MS4W 21:30 → 6ICU 06-22 07:22
PROVIDERS: ADMIT Family Medicine; ATTEND Family Medicine
PROC: 5A1935Z Respiratory Ventilation, Less than 24 Consecutive Hours (ICD-10-PCS; principal; 2016-06-22)
PROC: 5A12012 Performance of Cardiac Output, Single, Manual (ICD-10-PCS; 2016-06-22)
PROC: 0BH17EZ Insertion of Endotracheal Airway into Trachea, Via Natural or Artificial Opening (ICD-10-PCS; 2016-06-22)
PROC: 0D9670Z Drainage of Stomach with Drainage Device, Via Natural or Artificial Opening (ICD-10-PCS; 2016-06-22)
DX: A41.9 Sepsis, unspecified organism (principal); G93.41 Metabolic encephalopathy; R57.0 Cardiogenic shock; J96.01 Acute respiratory failure with hypoxia; J96.02 Acute respiratory failure with hypercapnia; R57.1 Hypovolemic shock; E46 Unspecified protein-calorie malnutrition; Z66 Do not resuscitate; Z51.5 Encounter for palliative care; G93.1 Anoxic brain damage, not elsewhere classified; R64 Cachexia; R13.10 Dysphagia, unspecified; E87.2 Acidosis; N39.0 Urinary tract infection, site not specified; I46.9 Cardiac arrest, cause unspecified; E87.8 Other disorders of electrolyte and fluid balance, not elsewhere classified; E86.0 Dehydration; F01.50 Vascular dementia, unspecified severity, without behavioral disturbance, psychotic disturbance, mood disturbance, and anxiety; E11.9 Type 2 diabetes mellitus without complications; F02.80 Dementia in other diseases classified elsewhere, unspecified severity, without behavioral disturbance, psychotic disturbance, mood disturbance, and anxiety; G89.4 Chronic pain syndrome; Z86.73 Personal history of transient ischemic attack (TIA), and cerebral infarction without residual deficits; K21.9 Gastro-esophageal reflux disease without esophagitis; M19.90 Unspecified osteoarthritis, unspecified site; R62.7 Adult failure to thrive; I10 Essential (primary) hypertension; R00.1 Bradycardia, unspecified; I49.5 Sick sinus syndrome; F41.9 Anxiety disorder, unspecified; Z98.49 Cataract extraction status, unspecified eye; Z87.891 Personal history of nicotine dependence; Z91.041 Radiographic dye allergy status; Z79.82 Long term (current) use of aspirin; Z79.84 Long term (current) use of oral hypoglycemic drugs; Z79.899 Other long term (current) drug therapy
CPT/HCPCS: 36415; 36600; 71010; 71020; 80053; 81001; 81003; 82533; 82550; 82553; 82805; 83605; 83735; 83880; 84100; 84484; 85025; 85610; 85730; 87040; 87070; 87077; 87086; 87186; 87205; 87502; 93005; 94002; 94640; 96361; 96365; 96367; 96375; 99285